=== PATIENT | male | born 1960 | race Caucasian/White ===

== ENCOUNTER 2021-02-26 04:44 | Inpatient (IN) | payer BC, OTHER ==
[~2021-02-26] VITALS: Ht 167.6 cm; Wt 72.0 kg
[2021-02-26] MEDS ORDERED: KETOROLAC TROMETH 30 MG/ML 1ML VIAL IV ONE (05:00)
[2021-02-26] MEDS ORDERED: MORPHINE SULFATE 4 MG/ML SYR/VIAL IV ONE ×2 (05:00→07:30)
[2021-02-26] MEDS ORDERED: SODIUM CHLORIDE 0.9% 1,000 ML IV ONE (05:00)
[2021-02-26 05:50] LABS: Basophils # (auto) 0 10 ^3/uL (0-0.2); Basophils % (auto) 0.2 % (0.0-2.0); Eosinophils # (auto) 0 10 ^3/uL (0-0.8); Eosinophils % (auto) 0.1 % (0.0-7.0); Hematocrit 46.5 % (41.0-53.0); Hemoglobin 15.8 g/dL (13.5-17.5); Lymphocytes # (auto) 0.6 10 ^3/uL (0.4-5.4); Lymphocytes % (auto) 4.2 % (10.0-50.0); Mean Corpuscular Hemoglobin 29.9 pg (28.0-32.0); Mean Corpuscular Hgb Conc. 33.9 g/dL (32.0-36.0); Monocytes # (auto) 0.7 10 ^3/uL (0-1.3); Monocytes % (auto) 4.9 % (0.0-12.0); Neutrophils # (auto) 12.9 10 ^3/uL (1.6-8.6); Neutrophils % (auto) 90.6 % (37.0-80.0); Red Blood Cells 5.29 10^6/uL (4.5-5.90); White Blood Cell 14.2 10^3/uL (4.4-10.8)
[2021-02-26 05:57] LABS: Calcium 9.3 mg/dL (8.5-10.1); Potassium 3.4 mmol/L (3.5-5.1)
[2021-02-26 06:02] LABS: BUN/Creatinine Ratio 15.9; Bilirubin, Total 0.5 mg/dL (0.2-1.0); Total Protein 7.2 g/dL (6.4-8.2)
[2021-02-26] MEDS ORDERED: ONDANSETRON HCL 4 MG/2 ML VIAL IV ONE (07:30)
[2021-02-26] MEDS ORDERED: ACETAMINOPHEN 500 MG TAB PO PRN (10:00)
[2021-02-26] MEDS ORDERED: ONDANSETRON HCL 4 MG/2 ML VIAL IV PRN (10:00)
[2021-02-26] MEDS: THIAMINE HCL 100 MG TAB PO SCH (10:00)
[2021-02-26] MEDS: SODIUM CHLORIDE 0.9% 1,000 ML IV SCH ×2 (10:00→17:52)
[2021-02-26] MEDS ORDERED: POTASSIUM CHL 20 Meq TABLET PO ONE (10:00)
[2021-02-26] MEDS ORDERED: MORPHINE SULFATE INJECTION 2 MG/ML SYRG IV PRN ×2 (10:00)
[2021-02-26] MEDS ORDERED: HYDROcodone-ACET 5/325MG TAB PO PRN (10:00)
[2021-02-26] MEDS ORDERED: NITROGLYCERIN 0.4 MG SL TAB SL PRN (10:00)
[2021-02-26] MEDS: MULTIPLE VITAMIN TAB PO SCH (11:02)
[2021-02-26] MEDS: cefTRIAXone 1GM/50ML D5W 50 ML IV SCH (11:02)
[2021-02-26 16:38] VITALS: BP 140/75
[2021-02-26] MEDS ORDERED: TAMSULOSIN HYDROCHLORIDE 0.4 MG CAP PO SCH (18:00)
[2021-02-26] MEDS ORDERED: ROSU5TAB5 PO (18:15)
[2021-02-26] MEDS ORDERED: AMLO-489 PO (18:15)
[2021-02-26] MEDS ORDERED: LOSA-39 PO (18:15)
[2021-02-26 18:27] LABS: Urine Bacteria FEW /hpf (None Seen); Urine Blood 3+ /uL (Negative); Urine Specific Gravity 1.026 (1.001-1.035); Urine WBC 21 /hpf (0 - 3)
[2021-02-26] MEDS ORDERED: FAMO-12 PO (18:52)
[2021-02-26 22:00] VITALS: BP 130/83
[2021-02-27] MEDS: SODIUM CHLORIDE 0.9% 1,000 ML IV SCH ×3 (02:00→16:10)
[2021-02-27 05:00] VITALS: BP 128/79
[2021-02-27 05:38] LABS: Basophils # (auto) 0 10 ^3/uL (0-0.2); Basophils % (auto) 0.1 % (0.0-2.0); Eosinophils # (auto) 0.2 10 ^3/uL (0-0.8); Eosinophils % (auto) 1.6 % (0.0-7.0); Hematocrit 40.3 % (41.0-53.0); Hemoglobin 13.8 g/dL (13.5-17.5); Lymphocytes # (auto) 1.3 10 ^3/uL (0.4-5.4); Lymphocytes % (auto) 12.7 % (10.0-50.0); Mean Corpuscular Hemoglobin 30.4 pg (28.0-32.0); Mean Corpuscular Hgb Conc. 34.2 g/dL (32.0-36.0); Mean Corpuscular Volume 88.8 fL (80.0-100.0); Monocytes % (auto) 9.8 % (0.0-12.0); Neutrophils # (auto) 7.5 10 ^3/uL (1.6-8.6); Neutrophils % (auto) 75.8 % (37.0-80.0); Red Blood Cells 4.54 10^6/uL (4.5-5.90); Red Cell Distribution Width 13.8 % (11.8-14.3); White Blood Cell 9.9 10^3/uL (4.4-10.8)
[2021-02-27 05:51] LABS: BUN/Creatinine Ratio 13.8; Calcium 8.3 mg/dL (8.5-10.1); Potassium 3.7 mmol/L (3.5-5.1)
[2021-02-27] MEDS: cefTRIAXone 1GM/50ML D5W 50 ML IV SCH (08:25)
[2021-02-27] MEDS: THIAMINE HCL 100 MG TAB PO SCH (08:25)
[2021-02-27] MEDS: MULTIPLE VITAMIN TAB PO SCH (08:25)
[2021-02-27 09:00] VITALS: BP 133/92
[2021-02-27] MEDS: FAMOTIDINE (10MG/ML) 2ML VL IV SCH ×2 (11:08→21:33)
[2021-02-27 13:00] VITALS: BP 134/95
[2021-02-27] MEDS ORDERED: CALCIUM GLUC 1,000mg/50ml-NS 50 ML IV ONE (13:15)
[2021-02-27] MEDS ORDERED: cefTRIAXone 1GM/50ML D5W 50 ML IV ONE (13:15)
[2021-02-27] MEDS ORDERED: ENOXAPARIN SOD 40 MG/0.4 ML SYRINGE SC ONE (13:15)
[2021-02-27 13:37] LABS: Cholesterol 110 mg/dL (< 200)
[2021-02-27 13:40] LABS: HDL Cholesterol 55 mg/dL (40-59); LDL Cholesterol 46 mg/dL (< 100); Triglycerides 84 mg/dL (< 150)
[2021-02-27 17:00] VITALS: BP 137/98
[2021-02-27] MEDS: CALCIUM W/VIT D (600MG/400IU) TAB PO SCH (17:53)
[2021-02-27] MEDS ORDERED: TAMSULOSIN HYDROCHLORIDE 0.4 MG CAP PO SCH (18:00)
[2021-02-27 22:00] VITALS: BP 125/86
[2021-02-28] MEDS: SODIUM CHLORIDE 0.9% 1,000 ML IV SCH ×2 (02:00→10:00)
[2021-02-28 05:00] VITALS: BP 122/85
[2021-02-28 05:34] LABS: Basophils # (auto) 0 10 ^3/uL (0-0.2); Basophils % (auto) 0.7 % (0.0-2.0); Eosinophils # (auto) 0.3 10 ^3/uL (0-0.8); Hematocrit 42.7 % (41.0-53.0); Hemoglobin 14.1 g/dL (13.5-17.5); Lymphocytes # (auto) 1.1 10 ^3/uL (0.4-5.4); Lymphocytes % (auto) 16.5 % (10.0-50.0); Mean Corpuscular Hemoglobin 29.3 pg (28.0-32.0); Mean Corpuscular Hgb Conc. 32.9 g/dL (32.0-36.0); Mean Corpuscular Volume 88.8 fL (80.0-100.0); Monocytes # (auto) 0.6 10 ^3/uL (0-1.3); Monocytes % (auto) 9.8 % (0.0-12.0); Neutrophils # (auto) 4.6 10 ^3/uL (1.6-8.6); Red Blood Cells 4.81 10^6/uL (4.5-5.90); Red Cell Distribution Width 13.8 % (11.8-14.3); White Blood Cell 6.6 10^3/uL (4.4-10.8)
[2021-02-28 05:49] LABS: INR 1.01 (0.9-1.15); Partial Thromboplastin Time 28.7 sec (23.6-33.0)
[2021-02-28 05:52] LABS: Anion Gap 7 (5-15); Blood Urea Nitrogen 12 mg/dL (7-18); Calcium 8.4 mg/dL (8.5-10.1); Carbon Dioxide 24 mmol/L (21-32); Chloride 113 mmol/L (98-107); Glucose 96 mg/dL (74-106); Magnesium 2.2 mg/dL (1.6-2.6); Sodium 144 mmol/L (136-145)
[2021-02-28 06:00] LABS: Alanine Aminotransferase 22 U/L (16-61); Alkaline Phosphatase 52 U/L (45-117); Aspartate Aminotransferase 12 U/L (15-37); BUN/Creatinine Ratio 13.3; Bilirubin, Total 0.4 mg/dL (0.2-1.0); GFR African American 111 mL/min; GFR Non-African American 91 mL/min; Phosphorus 3.2 mg/dL (2.5-4.90); Total Protein 5.9 g/dL (6.4-8.2); Uric Acid 4.6 mg/dL (3.5-7.2)
[2021-02-28 09:00] VITALS: BP 123/86
[2021-02-28] MEDS: CALCIUM W/VIT D (600MG/400IU) TAB PO SCH (09:54)
[2021-02-28] MEDS: FAMOTIDINE (10MG/ML) 2ML VL IV SCH (09:55)
[2021-02-28] MEDS: MULTIPLE VITAMIN TAB PO SCH (10:00)
[2021-02-28] MEDS ORDERED: ENOXAPARIN SOD 40 MG/0.4 ML SYRINGE SC SCH (10:00)
[2021-02-28] MEDS ORDERED: CEFTRIAXONE SODIUM 2 GM in D5W 5% 50 ML IV SCH (10:00)
[2021-02-28] MEDS: THIAMINE HCL 100 MG TAB PO SCH (10:01)
[2021-02-28] MEDS ORDERED: CEPH-322 PO (12:26)
[2021-02-28] MEDS ORDERED: CALC600T80 PO (12:26)
[2021-02-28] MEDS ORDERED: AMLO-489 PO (12:26)
[2021-02-28] MEDS ORDERED: ROSU5TAB5 PO (12:26)
[2021-02-28] MEDS ORDERED: TAM04C PO (12:26)
[2021-02-28] MEDS ORDERED: LOSA-39 PO (12:26)
[2021-02-28] MEDS ORDERED: MULTTAB99 PO (12:26)
[2021-02-28] MEDS ORDERED: FAMO-12 PO (12:26)
[2021-02-28] MEDS ORDERED: THIA100T10 PO (12:26)
[2021-02-28 12:41] VITALS: BP 126/92
[2021-02-28 13:00] VITALS: BP 126/92
== END 2021-02-28 15:50 | disposition home or self-care (01) | DRG 690 ==
LOC: EDBD 04:44 → ER 04:44 → TELE 09:58 → TELE-CENTR 15:29
PROVIDERS: ADMIT Nurse Practitioner Acute Care; ATTEND Nurse Practitioner Acute Care
DX: N13.6 Pyonephrosis (principal); I16.9 Hypertensive crisis, unspecified; E78.5 Hyperlipidemia, unspecified; E87.6 Hypokalemia; E66.9 Obesity, unspecified; I10 Essential (primary) hypertension; I25.10 Atherosclerotic heart disease of native coronary artery without angina pectoris; K21.9 Gastro-esophageal reflux disease without esophagitis; N40.0 Benign prostatic hyperplasia without lower urinary tract symptoms; Z96.651 Presence of right artificial knee joint; Z20.822 Contact with and (suspected) exposure to COVID-19; D18.00 Hemangioma unspecified site; Z87.891 Personal history of nicotine dependence; Z88.8 Allergy status to other drugs, medicaments and biological substances; Z68.24 Body mass index [BMI] 24.0-24.9, adult
CPT/HCPCS: 36415; 74018; 74176; 80048; 80053; 80061; 81001; 82306; 83036; 83690; 83735; 83880; 83970; 84100; 84154; 84443; 84484; 84550; 85025; 85610; 85730; 87086; 87426; 93005; 96361; 96374; 96375; G0378; J0696; J1885; J2405; J3490; J7060

== ENCOUNTER 2024-03-03 00:57 | Emergency (ER) | payer BC, OTHER ==
[~2024-03-03] VITALS: Ht 167.6 cm; Wt 67.9 kg
[~2024-03-03 00:57] MED LIST: AMLO1TAB22 PO; CALC600T80 PO; CEPH250C PO; FAMO-12 PO; LOSA-535 PO; MULTTAB99 PO; ROSU5TAB5 PO; TAMS-35 PO; THIA100T10 PO
[2024-03-03 01:27] VITALS: BP 129/91; PULSE 85; RESP 16; TEMP 98.6; O2SAT 96
[2024-03-03] MEDS: FLUORESCEIN SOD OPTH TEST STRIP LEFTEYE ONE (03:58)
[2024-03-03] MEDS: TETRACAINE HCL 0.5% OPTH(EYE) SOLN 4ML LEFTEYE ONE (03:59)
[2024-03-03] MEDS ORDERED: MOXI0.5S3 OP (04:56)
[2024-03-03] MEDS: SODIUM CHLORIDE 0.9% 500 ML IV ONE (04:59)
== END 2024-03-03 05:10 | disposition home or self-care (01) ==
LOC: ER 00:57
DX: S00.212A Abrasion of left eyelid and periocular area, initial encounter (principal); E78.5 Hyperlipidemia, unspecified; I10 Essential (primary) hypertension; Z88.6 Allergy status to analgesic agent; W22.8XXA Striking against or struck by other objects, initial encounter; Y93.89 Activity, other specified; Y92.89 Other specified places as the place of occurrence of the external cause; Y99.8 Other external cause status